=== PATIENT | male | born 1980 | race Two or more races ===

== ENCOUNTER 2017-11-10 05:57 | Inpatient (IN) | payer OTHER ==
[2017-11-10] VITALS (13 sets, daily range): BP systolic 109–134; BP diastolic 62–85
[~2017-11-10] VITALS: Ht 170.2 cm; Wt 81.6 kg
[~2017-11-10 05:57] MED LIST: NKM
[2017-11-10] MEDS ORDERED: Propofol 200mg/20ml IV ONE (07:00)
[2017-11-10] MEDS ORDERED: fentaNYL 100 mcg/2 mL IV ONE (07:00)
[2017-11-10] MEDS ORDERED: HYDROmorphone 1mg/ml Carpuject ONE (07:00)
[2017-11-10] MEDS ORDERED: Midazolam 2mg/2ml Inj ONE (07:00)
[2017-11-10] MEDS ORDERED: Zemuron 50mg/5ml Inj IV ONE ×2 (07:00→07:35)
[2017-11-10] MEDS ORDERED: Labetalol 5mg/ml 20ml vial IV ONE (07:00)
[2017-11-10] MEDS ORDERED: LR 1000ml ONE (07:00)
--- NOTE | 2017-11-10 07:03 | Pre-Procedure Note/Attestation ---
Pre-Procedure Note/Attestation Complete Prior to Procedure Planned Procedure: not applicable Procedure Narrative: Patient with neck and arm pain. Has discogram positive discs at C4-5 and C5- 6.Failed conservative care. plan is to do ACDF at C4-5 and disc arthroplasty at C5-6 Indications for Procedure Pre-Operative Diagnosis: Patient with neck and arm pain. Has discogram positive discs at C4-5 and C5- 6.Failed conservative care. plan is to do ACDF at C4-5 and disc arthroplasty at C5-6 Attestation I attest that I discussed the nature of the procedure; its benefits; risks and complications; and alternatives (and the risks and benefits of such alternatives ), prior to the procedure, with the patient (or the patient's legal risk control representative). I attest that, if there was a reasonable possibility of needing a blood transfusion, the patient (or the patient's legal risk control representative) was given the [facility] standardized written summary, pursuant to the Am[place]car [place] Blood Safety Act ([place] Health and Safety Code # 1645, as amended). I attest that I re-evaluated the patient just prior to the surgery and that there has been no change in the patient's H&P, except as documented below: HIRAL MUKHERJEE Nov 10, 2017 07:03
[2017-11-10] MEDS ORDERED: EPINEPHrine 1mg/1ml Amp ONE (07:21)
[2017-11-10] MEDS ORDERED: Bupivacaine 0.5% Inj 30 ml vial INJ ONE (07:22)
[2017-11-10] MEDS ORDERED: Thrombin 5000 units spray kit TOPIC ONE (07:22)
[2017-11-10] MEDS ORDERED: Gelfoam Absorbable 1gm powder pkt TOPIC ONE (07:22)
[2017-11-10] MEDS ORDERED: Thrombin 5000 units TOPIC ONE (07:22)
[2017-11-10] MEDS ORDERED: Bacitracin 50000 Units Vial ONE (07:23)
[2017-11-10] MEDS ORDERED: LR 1000ml 1,000 ML IVLG SCH (08:23)
--- NOTE | 2017-11-10 08:29 | Anethesia Preoperative Eval ---
Anesthesia Pre-op PMH/ROS General Date of Evaluation: Nov 10, 2017 Time of Evaluation: 07:30 Anesthesiologist: opal ASA Score: ASA 1 Mallampati Score Class I : Soft palate, uvula, fauces, pillars visible Class II: Soft palate, uvula, fauces visible Class III: Soft palate, base of uvula visible Class IV: Only hard plate visible Mallampati Classification: Class II Surgeon: Pola Diagnosis: Cervical disc herniations with instability Surgical Procedure: ACDF with Pro disc Anesthesia History: none Family History: no anesthesia problems Allergies: Coded Allergies: No Known Allergies (Unverified , 11/10/17) Medications: see eMAR Past Medical History Cardiovascular: Denies: HTN, CAD, AR, valve dz, arrhythmia, other Pulmonary: Denies: asthma, COPD, URSZULA, other Gastrointestinal/Genitourinary: Denies: GERD, CRI, ESRD, other Neurologic/Psychiatric: Denies: dementia, CVA, depression/anxiety, TIA, other Endocrine: Denies: DM, hypothyroidism, steroids, other HEENT: Denies: cataract (L), cataract (R), glaucoma, CHALKYITSIK (L), CHALKYITSIK (R), other Hematology/Immune: Denies: anemia, DVT, bleeding disorder, other Musculoskeletal/Integumentary: Denies: OA, RA, DJD, DDD, edema, other PMH Narrative: Denies significant PMH PSxH Narrative: No prior surgery Anesthesia Pre-op Phys. Exam Physician Exam Last Vital Signs Date Time Temp Pulse Resp B/P (MAP) Pulse Ox O2 Delivery O2 Flow Rate FiO2 11/10/17 06:22 98.7 81 18 134/85 98 Room Air 98.7 Constitutional: NAD Neurologic: CN 2-12 intact Cardiovascular: RRR Respiratory: CTA Gastrointestinal: S/NT/ND Airway Exam Mallampati Score: Class II MO: full ROM: full Teeth: intact Anesthesia Pre-op A/P Labs WNL Studies Pre-op Studies: EKG - NSR, echo - Nl wall motion, EF 60-65% Risk Assessment & Plan Assessment: Healthy male for cervical spine fusion Plan: GETA, SedLine Status Change Before Surgery: No Pre-Antibiotics Drug: Ancef Time Given: 07:45 Amilcar Nelson MD Nov 10, 2017 08:29
[2017-11-10] MEDS ORDERED: LR 1000ml 1,000 ML IV SCH (08:30)
[2017-11-10] MEDS ORDERED: DiphenhydrAMINE 50mg/ml Inj IVP PRN ×2 (08:30→10:30)
[2017-11-10] MEDS ORDERED: Meperidine 50mg/ml Inj(FOR RIGORS ONLY) IVP ONE (08:30)
[2017-11-10] MEDS ORDERED: LORazepam Inj 2mg/ml 1ml IV PRN (08:30)
[2017-11-10] MEDS ORDERED: Hydromorphone 0.5mg/0.5ml inj IVP PRN (08:30)
--- NOTE | 2017-11-10 08:30 | Immediate Post-Op Evaluation ---
Immediate Post-Op Evalulation Immediate Post-Op Evalulation Procedure: ACDF with Pro disc Date of Evaluation: Nov 10, 2017 Time of Evaluation: 10:35 IV Fluids: 1050 Estimated Blood Loss: 40 Blood Pressure Systolic: 110 Blood Pressure Diastolic: 62 Pulse Rate: 92 Respiratory Rate: 16 O2 Sat by Pulse Oximetry: 98 Temperature (Fahrenheit): 97.4 Pain Score (1-10): 0 Nausea: No Vomiting: No Complications No complication Patient Status: awake, patent, extubated, none Hydration Status: adequate Drug: Ancef Given Within 1 Hr of Incision: Yes Time Given: 07:45 Amilcar Nelson MD Nov 10, 2017 08:30
[2017-11-10] MEDS ORDERED: Rate Change PCA 1 Each MISC PRN (10:30)
[2017-11-10] MEDS ORDERED: Norco 5mg/325mg tab ORAL PRN (10:30)
[2017-11-10] MEDS ORDERED: PCA Education Pamphlet MISC ONE (10:30)
[2017-11-10] MEDS ORDERED: HYDROmorphone 1mg/ml Carpuject IVP PRN (10:30)
[2017-11-10] MEDS ORDERED: LORazepam 1mg tab ORAL PRN ×2 (10:30→12:30)
[2017-11-10] MEDS ORDERED: Naloxone 0.4mg/ml Inj IVP PRN ×2 (10:30)
--- NOTE | 2017-11-10 10:31 | Operative Note - PDOC ---
Operative Note Operative Note Pre-op Diagnosis: Patient with neck and arm pain. Has discogram positive discs at C4-5 and C5- 6.Failed conservative care. plan is to do ACDF at C4-5 and disc arthroplasty at C5-6 Procedure: ACDF C4-5, Disc arthroplasty C5-6 Post-op Diagnosis: same as pre-op Operative Findings: consistent w/pre-op dx studies Surgeon: Pola Hr Associate: NANCY Mukherjee Anesthesiologist: Leslie Anesthesia: general Specimen: none Complications: none Condition: stable Estimated Blood Loss: minimal Drains: none Implant(s) used?: Yes - Synthes Pro-Disc C, Medtronic Zevo plate and bone. HIRAL MUKHERJEE Nov 10, 2017 10:31
[2017-11-10] MEDS ORDERED: Meperidine 50mg/ml Inj(FOR RIGORS ONLY) ONE (10:55)
--- NOTE | 2017-11-10 11:35 | Diagnostic Imaging Report ---
Indication: Neck pain Technique: Intraoperative images Comparison: none Findings: Initial image demonstrates surgical tool projecting at the C5-6 disc level. Subsequent images demonstrate anterior fusion with placement of a disc spacer at C4-5, and placement of a disc prosthesis at C5-6. Impression: Intraoperative imaging, as described
[2017-11-10] MEDS: ceFAZolin sod 2 GM in D5W 110 ML IV SCH ×2 (14:10→23:04)
--- NOTE | 2017-11-10 15:35 | General Progress Note ---
Assessment/Plan Assessment/Plan ACDF C4-5, Disc arthroplasty C5-6 cervical disc disease neck pain PLAN 1. incentive spirometry 2. SCDs 3. PT evaluation and therapy 4. Hydration 5. Pain management 6. discharge once stable with outpatient follow up Subjective Allergies: Coded Allergies: No Known Allergies (Unverified , 11/10/17) Subjective care noted and discussed post op Objective Last 24 Hour Vital Signs Date Time Temp Pulse Resp B/P (MAP) Pulse Ox O2 Delivery O2 Flow Rate FiO2 11/10/17 12:30 98.3 81 16 115/68 96 Nasal Cannula 3.0 98.3 11/10/17 11:45 98.5 87 16 109/65 96 Nasal Cannula 3.0 98.5 11/10/17 11:30 97.8 77 14 112/65 98 Nasal Cannula 3.0 97.8 11/10/17 11:29 97.9 11/10/17 11:20 77 15 116/67 98 Nasal Cannula 3.0 11/10/17 11:10 88 16 120/68 98 Nasal Cannula 3.0 11/10/17 10:59 97.4 11/10/17 10:59 90 14 129/84 98 Simple Mask 6.0 11/10/17 10:45 92 15 118/67 98 Simple Mask 6.0 11/10/17 10:35 92 15 117/69 98 Simple Mask 6.0 11/10/17 10:31 207.3 92 16 98 11/10/17 10:30 90 14 113/68 98 Simple Mask 6.0 11/10/17 10:25 97.4 93 19 110/62 98 Simple Mask 6.0 97.4 11/10/17 06:22 98.7 81 18 134/85 98 Room Air 98.7 Intake and Output 11/09/17 11/10/17 19:00 07:00 # Voids 1 Height (Feet): 5 Height (Inches): 7.00 Weight (Pounds): 180 Objective WDWN NAD clear breath sounds bilaterally without rhonchi or wheeze [id number] without MRG NABS nontender no HSM no CCE nonfocal MELISSA GARRETT Nov 10, 2017 15:35
[2017-11-10] MEDS ORDERED: PCA shift volume MISC SCH (19:00)
[2017-11-11] VITALS: BP 110/64
[2017-11-11 05:00] VITALS: BP 115/63
[2017-11-11] MEDS: ceFAZolin sod 2 GM in D5W 110 ML IV SCH (06:12)
[2017-11-11 07:50] VITALS: BP 103/61
--- NOTE | 2017-11-11 08:30 | Operative Note - Dictated ---
DATE OF OPERATION: 11/10/2017 FACILITY: [facility]. SURGEON: John Escalona M.D. 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 ANESTHESIOLOGIST: Amilcar Nelson M.D. ANESTHESIA: General endotracheal with arterial blood pressure monitoring. PREOPERATIVE DIAGNOSIS: Cervical disc disease at C4-C5 and C5-C6 with evidence of increased mobility on flexion-extension films and positive localizing discography at both C4-C5 and C5-C6 not responsive to a long program of conservative care. POSTOPERATIVE DIAGNOSIS: Discogenic pain C4-C5 and C5-C6. OPERATIVE PROCEDURE: Anterior cervical discectomy and interbody fusion at the C4-C5 level using a 21 mm anterior Medtronic compression plate and four 15 mm compression screws with a 7 mm height lordotic allograft at the C5-C6 level. A total disc arthroplasty 6 mm in height was inserted, large. DESCRIPTION OF PROCEDURE: The patient was prepped and draped in the supine position after induction of satisfactory general anesthesia. His head was placed in a soft traction with a halter and 10 pounds of a proximal kamlesh. His arms were tracked and tucked and a bolster was placed between his shoulder blades. The neck was gently extended over a posterior support. A lateral x-ray was taken to localize the level of the operative incision on the right side. After prepping and draping, an inch and a half incision was made on the right side between midline and the anterior edge of the sternocleidomastoid. The incision was carried down through skin and subcutaneous tissue. The platysma was divided. The jugular venous plexus was identified, dissected free, and protected. The interval between the trachea and esophagus medially and the carotid sheath and sternocleidomastoid laterally was defined and dissected to reach the level of the anterior spine. The dissection was then carried medially exposing the anterior discs and vertebral bodies at C4-C5 and C5-C6. An East-West, North-South retractor was positioned and a lateral x-ray with a spinal needle in place at C5-C6 was used to confirm location. An anterior annulotomy was done at C5-C6 using a #15 blade. The soft disc substance and cartilaginous endplate at C5-C6 was then sequentially removed using larger smaller angled and straight curettes, Kerrisons, and pituitaries. A Midas with an AMA bur was also used to remove the posterior edge of the vertebral osteophytes bordering on the canal and to do a mini foraminotomy on the right and left. The dural sac was identified and freed completely. It was unencumbered and pulsating normally with respiration. Both the right and left foramen was wide open. The dissection was then carried up to the C4-C5 level where an anterior annulotomy was done. Osteophytes were removed with a Kerrison from the anterior superior edge of the body of C4. Dissection was carried from front to back using curettes, Kerrisons, and pituitaries. Again, the posterior edge of the vertebral body was removed with a Midas and a mini foraminotomy was accomplished as well with a Midas and a 2 mm Kerrison. The dural sac was uncovered. Each foramen was widely opened at C4-C5 as well. The space was sized up for a 7 mm lordotic graft, which was then inserted and tapped into place just 2 cm below the anterior edge of the vertebral body. Position was checked and a 21 mm Medtronic compression plate was then positioned, checked on AP and lateral, temporary fixation was done, and then when rotation was correct, four 15 mm compression screws were inserted adequately stabilizing the graft in good position. The C5-C6 level was then checked with a template and #6 large was chosen. The irwin were made over the centralizing template and then the final disc was then tapped into place while watching on lateral portal until it reached the posterior edge. The disc was quite well centered on AP with the irwin in good position and well fixed. The overall curve was lordotic with good height and good overall alignment in both the AP and lateral plane. FloSeal was used posteriorly at C5-C6 level. The wound was closed in layers including the platysma, subcutaneous, and skin. Blood loss was less than 50 mL. The patient was placed in a compression bandage and soft cervical collar and returned to recovery room in good condition. John Escalona M.D. DR: DELL JOB#: [id number] CC:
--- NOTE | 2017-11-11 10:49 | 48 Hour Post Anesthesia Eval ---
Post Anesthesia Evaluation Procedure: ACDF with Pro disc Date of Evaluation: Nov 11, 2017 Time of Evaluation: 11:25 Blood Pressure Systolic: 103 0: 61 Pulse Rate: 86 Respiratory Rate: 18 Temperature (Fahrenheit): 98.4 O2 Sat by Pulse Oximetry: 96 Airway: patent Nausea: No Vomiting: No Pain Intensity: 3 Hydration Status: adequate Cardiopulmonary Status: Stable Mental Status/LOC: patient returned to baseline Follow-up Care/Observations: As per surgery Post-Anesthesia Complications: No anesthetic complication Follow-up care needed: N/A Amilcar Nelson MD Nov 11, 2017 10:49
[2017-11-11 12:00] VITALS: BP 131/74
[2017-11-11 16:00] VITALS: BP 119/69
[2017-11-11] MEDS: HYDROcodone/Acetamin 7.5/325 tab ORAL PRN ×3 (16:02→23:22)
--- NOTE | 2017-11-11 16:58 | General Progress Note ---
Assessment/Plan Assessment/Plan ACDF C4-5, Disc arthroplasty C5-6 cervical disc disease neck pain PLAN 1. incentive spirometry 2. SCDs 3. PT evaluation and therapy 4. Hydration 5. Pain management 6. discharge once stable with outpatient follow up Subjective Allergies: Coded Allergies: No Known Allergies (Unverified , 11/10/17) Subjective care noted and discussed post op noted Objective Last 24 Hour Vital Signs Date Time Temp Pulse Resp B/P (MAP) Pulse Ox O2 Delivery O2 Flow Rate FiO2 11/11/17 16:02 98.4 11/11/17 16:00 99.0 96 20 119/69 94 Room Air 99.0 11/11/17 12:58 98.4 11/11/17 12:28 98.4 11/11/17 12:00 98.6 86 18 131/74 94 Room Air 98.6 11/11/17 10:49 209.1 86 18 96 11/11/17 07:50 98.4 86 18 103/61 96 Nasal Cannula 2.0 98.4 11/11/17 07:04 98.4 11/11/17 05:00 98.4 87 18 115/63 99 Nasal Cannula 2.0 98.4 11/11/17 00:00 98.7 90 18 110/64 97 Nasal Cannula 2.0 98.7 11/10/17 20:00 98.6 81 18 111/67 97 Nasal Cannula 2.0 98.6 11/10/17 17:07 98.7 Intake and Output 11/10/17 11/11/17 19:00 07:00 Intake Total 1960 ml 1110 ml Output Total 540 ml Balance 1420 ml 1110 ml Intake Oral 250 ml IV Total 1710 ml 1110 ml Output Urine Total 500 ml Estimated Blood Loss 40 ml # Voids 1 3 Height (Feet): 5 Height (Inches): 7.00 Weight (Pounds): 180 Objective WDWN NAD clear breath sounds bilaterally without rhonchi or wheeze [id number] without MRG NABS nontender no HSM no CCE nonfocal MELISSA GARRETT Nov 11, 2017 16:58
[2017-11-11 20:00] VITALS: BP 118/71
[2017-11-12] VITALS: BP 119/70
[2017-11-12] MEDS: HYDROcodone/Acetamin 7.5/325 tab ORAL PRN (04:37)
[2017-11-12 04:47] VITALS: BP 118/77
[2017-11-12 08:00] VITALS: BP 130/75
[2017-11-12] MEDS ORDERED: NORCO 10-325 T1 EACH ORAL ×2 (08:15→08:16)
[2017-11-12] MEDS ORDERED: CYCLOBENZAPRINE10 MG ORAL ×2 (08:17→08:18)
--- NOTE | 2017-11-12 08:23 | General Progress Note ---
Assessment/Plan Assessment/Plan ACDF C4-5, Disc arthroplasty C5-6 cervical disc disease neck pain PLAN 1. incentive spirometry 2. SCDs 3. PT evaluation and therapy 4. Hydration 5. Pain management 6. discharge today; patient stable and taking po and ambulating well Subjective Allergies: Coded Allergies: No Known Allergies (Unverified , 11/10/17) Subjective care noted and discussed post op noted Objective Last 24 Hour Vital Signs Date Time Temp Pulse Resp B/P (MAP) Pulse Ox O2 Delivery O2 Flow Rate FiO2 11/12/17 08:00 98.3 84 20 130/75 95 Room Air 98.3 11/12/17 07:54 97.2 11/12/17 04:47 97.2 87 18 118/77 97 Room Air 97.2 11/12/17 00:00 98.2 96 18 119/70 96 Room Air 98.2 11/11/17 20:00 98.7 99 18 118/71 97 Room Air 98.7 11/11/17 17:01 98.4 11/11/17 16:02 98.4 11/11/17 16:00 99.0 96 20 119/69 94 Room Air 99.0 11/11/17 12:58 98.4 11/11/17 12:28 98.4 11/11/17 12:00 98.6 86 18 131/74 94 Room Air 98.6 11/11/17 10:49 209.1 86 18 96 Intake and Output 11/11/17 11/12/17 19:00 07:00 Intake Total 2000 ml 1450 ml Output Total 100 ml Balance 1900 ml 1450 ml Intake Oral 700 ml 300 ml IV Total 1300 ml 1150 ml Emesis 100 ml # Voids 2 2 Height (Feet): 5 Height (Inches): 7.00 Weight (Pounds): 180 Objective WDWN NAD clear breath sounds bilaterally without rhonchi or wheeze [id number] without MRG NABS nontender no HSM no CCE nonfocal MELISSA GARRETT Nov 12, 2017 08:23
--- NOTE | 2017-11-13 14:01 | Discharge Summary ---
Discharge Summary Hospital Course Date of Admission Nov 10, 2017 at 05:57 Date of Discharge Nov 12, 2017 at 09:00 Admitting Diagnosis HPI Conner Thompson is a 37 year old male who was admitted on Nov 10, 2017 at 05: 57 for Disc Herniations With Instability Hospital Course [id number] Discharge Discharge Disposition Patient was discharged to Home (01) Alcija Shepherd NP Nov 13, 2017 14:01
--- NOTE | 2017-11-14 03:45 | Discharge Summary 2 SIG ---
DATE OF ADMISSION: 11/10/2017 DATE OF DISCHARGE: 11/12/2017 SURGEON: John Escalona M.D. BRIEF HOSPITAL COURSE: The patient is a 37-year-old male, who injured his neck and lower back. Date of injury was October 12, 2015. He was admitted and underwent ACDF on C4-C5 with disc arthroplasty on C5-C6. Postoperatively, he was admitted for pain management. He was given IV hydration and was placed on SCDs for DVT prophylaxis. Diet was advanced. He was seen by physical therapy and occupational therapy. He had stable vital signs and good pain control. He was eventually discharged home. FINAL DIAGNOSES: Discogenic pain on C4-C5 and C5-C6 status post ACDF C4-C5 and total disc arthroplasty C5-C6. Please refer to operative report. DISPOSITION: The patient was discharged home. DISCHARGE MEDICATIONS: Refer to medication list. DISCHARGE INSTRUCTIONS: Follow up in a week. Carrillo Zamora M.D. I have been assigned to dictate discharge summary on this account and I was not involved in the patient's management. Alicja Shepherd N.P. DR: CRISTINA JOB#: [id number] CC: RIYA
== END 2017-11-12 09:00 | disposition home or self-care (01) | DRG 473 ==
LOC: SDSOVERFLO 05:57 → 3E 11:45
DX: M50.321 Other cervical disc degeneration at C4-C5 level (principal); V89.2XXS Person injured in unspecified motor-vehicle accident, traffic, sequela
CPT/HCPCS: 36415; 72040; 76001; 86850; 86900; 86901; 87081; 94003; 94150; J2250; J2405